=== PATIENT | female | born 1970 | race African-American/Black ===

== ENCOUNTER 2021-01-06 17:34 | Emergency (ER) | payer OTHER ==
[2021-01-06 17:42] VITALS: TEMP 98.3; BMI 38.7
[2021-01-06] MEDS ORDERED: FAMOTIDINE 20 MG TABLET PO ONE (18:36)
[2021-01-06] MEDS ORDERED: MAG HYDROX/AL HYDROX/SIMETH 30 ML UNIT-DOSE CUP PO ONE (18:36)
[2021-01-06] MEDS ORDERED: MAG HYDROX/AL HYDROX/SIMETH 30 ML UNIT-DOSE CUP ONE (18:42)
[2021-01-06] MEDS ORDERED: FAMOTIDINE 20 MG TABLET ONE (18:42)
[2021-01-06 19:04] LABS: EOS % 1.3 % (0-4.5); HEMATOCRIT 35.6 % (32.4-45.2); HEMOGLOBIN 11.9 GM/dL (10.7-15.3); LYMPH % 42.4 % (8-40); MCHC 33.4 g/dl (32.0-36.0); MEAN CELL VOLUME 86.8 fl (80-96); MEAN PLT VOLUME 7.8 fl (7.5-11.1); MONO % 8.7 % (3.8-10.2); NEUT % 46.6 % (42.8-82.8); PLATELET COUNT 258 10^3/uL (134-434); RDW 15.9 % (11.6-15.6); WHITE BLOOD COUNT 7.5 K/mm3 (4.0-10.0)
[2021-01-06 19:22] LABS: CHLORIDE 103 mmol/L (98-107); SODIUM 137 mmol/L (136-145)
[2021-01-06 19:24] LABS: CALCIUM 9.2 mg/dL (8.5-10.1)
[2021-01-06 19:25] LABS: ALBUMIN 3.4 g/dl (3.4-5.0); ANION GAP 7 MMOL/L (8-16); BLOOD UREA NITROGEN 12.2 mg/dL (7-18); CO2 27 mmol/L (21-32); GLUCOSE,RANDOM 90 mg/dL (74-106)
[2021-01-06 19:28] LABS: CREATININE 0.9 mg/dL (0.55-1.3); SGOT/AST 23 U/L (15-37); SGPT/ALT 32 U/L (13-61)
[2021-01-06 19:29] LABS: BILIRUBIN,TOTAL 0.3 mg/dL (0.2-1)
[2021-01-06 19:31] LABS: ALK PHOS 90 U/L (45-117)
[2021-01-06] MEDS ORDERED: ASPIRIN 81 MG CHEWABLE TABLETS PO ONE (22:13)
[2021-01-06 22:44] VITALS: BP 140/85; PULSE 70
== END 2021-01-06 22:44 ==
LOC: JER 17:34
DX: R07.9 Chest pain, unspecified (principal)
CPT/HCPCS: 36415; 71046-TC-FY; 80053; 82550; 82553; 84484; 85025; 93005; 93010; 99284-25

== ENCOUNTER 2021-03-25 16:18 | Emergency (ER) | payer OTHER ==
[2021-03-25 16:57] VITALS: TEMP 98; BMI 39.4
[2021-03-25] MEDS ORDERED: KETOROLAC TROMETHAMINE 30 MG/1 ML VIAL IM ONE (17:55)
[2021-03-25] MEDS ORDERED: KETOROLAC TROMETHAMINE 30 MG/1 ML VIAL ONE (18:20)
[2021-03-25] MEDS ORDERED: LIDOCAINE 5% TOPICAL PATCH TP ONE (19:36)
[2021-03-25 19:43] VITALS: BP 102/61; PULSE 71
[2021-03-25] MEDS ORDERED: LIDOCAINE 5% TOPICAL PATCH ONE (19:44)
== END 2021-03-25 20:02 | disposition home or self-care (01) ==
LOC: JER 16:18
PROC: 3E0233Z Introduction of Anti-inflammatory into Muscle, Percutaneous Approach (ICD-10-PCS; principal; 2021-03-25)
DX: M79.601 Pain in right arm (principal); W19.XXXA Unspecified fall, initial encounter; Y92.9 Unspecified place or not applicable
CPT/HCPCS: 73030-TC-RT-FY; 73060-TC-RT-FY; 73070-TC-RT-FY; 99284-25

== ENCOUNTER 2021-07-21 08:56 | Emergency (ER) | payer OTHER ==
[2021-07-21] MEDS ORDERED: DEXAMETHASONE LIQUID 0.5 MG/5 ML PO ONE (09:19)
[2021-07-21] MEDS ORDERED: guaiFENesin/CODEINE 10 ML UNIT-DOSE CUPS PO ONE (09:19)
[2021-07-21 09:25] VITALS: BP 146/77; PULSE 101; TEMP 98; BMI 39.6
[2021-07-21] MEDS ORDERED: guaiFENesin/CODEINE 5 ML UNIT-DOSE CUPS PO ONE (09:33)
[2021-07-21] MEDS ORDERED: DEXAMETHASONE SOD PHOSPHATE 10 MG/1 ML VIAL ONE (09:33)
[2021-07-21] MEDS: ALBUTEROL SO4 2.5/IPRATROPIUM 0.5 INH SOL 3 ML VIAL.NEB. NEB SCH ×2 (10:08→10:09)
[2021-07-22 06:08] LABS: SARS-CoV-2 NAA Not Detected (Not Detected)
== END 2021-07-21 11:55 | disposition home or self-care (01) ==
LOC: JER 08:56 → JERFT 08:56
PROC: 3E0F7GC Introduction of Other Therapeutic Substance into Respiratory Tract, Via Natural or Artificial Opening (ICD-10-PCS; principal; 2021-07-21)
DX: J45.21 Mild intermittent asthma with (acute) exacerbation (principal)
CPT/HCPCS: 71046-TC-FY; 99284-25; C9803-CS; U0003; U0005

== ENCOUNTER 2022-01-19 07:40 | Inpatient (IN) | payer OTHER ==
[2022-01-19 09:09] LABS: EOS % 1.4 % (0-4.5); HEMATOCRIT 39.4 % (32.4-45.2); HEMOGLOBIN 12.9 GM/dL (10.7-15.3); LYMPH % 29.6 % (8-40); MCH 27.8 pg (25.7-33.7); MCHC 32.8 g/dl (32.0-36.0); MEAN CELL VOLUME 84.7 fl (80-96); MEAN PLT VOLUME 7.2 fl (7.5-11.1); MONO % 9.9 % (3.8-10.2); NEUT % 58.1 % (42.8-82.8); PLATELET COUNT 186 10^3/uL (134-434); RBC 4.65 M/mm3 (3.60-5.2); RDW 15.8 % (11.6-15.6); WHITE BLOOD COUNT 6.8 K/mm3 (4.0-10.0)
[2022-01-19 09:25] LABS: CHLORIDE 105 mmol/L (98-107); SODIUM 137 mmol/L (136-145)
[2022-01-19 09:27] LABS: CALCIUM 9.5 mg/dL (8.5-10.1)
[2022-01-19 09:28] LABS: ALBUMIN 3.2 g/dl (3.4-5.0); ANION GAP 5 MMOL/L (8-16); BLOOD UREA NITROGEN 18.1 mg/dL (7-18); CO2 27 mmol/L (21-32); GLUCOSE,RANDOM 105 mg/dL (74-106); MAGNESIUM 2.3 mg/dL (1.8-2.4)
[2022-01-19 09:31] LABS: CREATININE 1.1 mg/dL (0.55-1.3); SGOT/AST 17 U/L (15-37); SGPT/ALT 18 U/L (13-61)
[2022-01-19 09:32] LABS: BILIRUBIN,TOTAL 0.3 mg/dL (0.2-1)
[2022-01-19 09:34] LABS: ALK PHOS 99 U/L (45-117)
[2022-01-19] MEDS ORDERED: ASPIRIN 81 MG CHEWABLE TABLETS PO ONE (10:18)
[2022-01-19] MEDS ORDERED: ASPIRIN 81 MG CHEWABLE TABLETS ONE (10:23)
[2022-01-19] MEDS ORDERED: ACETAMINOPHEN 325 MG TABLET (FP) PO PRN (10:33)
[2022-01-19 12:20] LABS: CHOLESTEROL 234 mg/dL (50-200); TRIGLYCERIDES 95 mg/dL (0-150)
[2022-01-19 12:21] LABS: LDL CHOLESTEROL (ONLY SJRH) 150 mg/dL (5-100)
[2022-01-19 12:23] LABS: HDL CHOLESTEROL 57 mg/dL (40-60)
[2022-01-19 13:18] LABS: URINE APPEARANCE CLEAR; URINE BILIRUBIN NEGATIVE (NEGATIVE); URINE COLOR YELLOW; URINE GLUCOSE (UA) NEGATIVE (NEGATIVE); URINE KETONE NEGATIVE (NEGATIVE); URINE LEUK ESTERASE NEGATIVE (NEGATIVE); URINE NITRITE NEGATIVE (NEGATIVE); URINE PROTEIN NEGATIVE (NEGATIVE); URINE UROBILINOGEN 0.2 mg/dL (0.2-1.0)
[2022-01-19] MEDS ORDERED: ATORVASTATIN CA 10 MG TABLET (FP) PO SCH (22:00)
[2022-01-20] MEDS ORDERED: NOREPINEPHRINE BITARTRATE 16,000 MCG in SODIUM CHLORIDE 484 ML IV SCH (03:30)
[2022-01-20 04:18] LABS: ARTERIAL BLD GAS O2 SATURATION 99.2 % (95-98); ARTERIAL BLOOD GAS BASE EXCESS -17.2 mmol/L (-2-2); ARTERIAL BLOOD GAS PO2 235.7 mmHg (80-100)
[2022-01-20] MEDS ORDERED: EPINEPHrine 1:10,000 (P-F SYR) 1 MG/10 ML DISP.SYRIN ONE ×2 (04:27→19:57)
[2022-01-20 04:42] LABS: ARTERIAL BLOOD GAS pH 7.119 (7.350-7.450)
[2022-01-20 05:12] LABS: INR 1.28 (0.83-1.09); PROTHROMBIN TIME (PATIENT) 14.8 SEC (9.7-13.0)
[2022-01-20 05:14] LABS: ACTIVATED PTT 61.7 SECONDS (25.2-36.5); CALCIUM 8.8 mg/dL (8.5-10.1); MAGNESIUM 2.4 mg/dL (1.8-2.4)
[2022-01-20 05:15] LABS: ALBUMIN 2.8 g/dl (3.4-5.0); BLOOD UREA NITROGEN 15.7 mg/dL (7-18)
[2022-01-20 05:17] LABS: CREATININE 1.7 mg/dL (0.55-1.3)
[2022-01-20 05:18] LABS: BILIRUBIN,DIRECT 0.2 mg/dL (0.0-0.2); PHOSPHOROUS 8.4 mg/dL (2.5-4.9)
[2022-01-20 05:19] LABS: TOT PROT 7.2 g/dl (6.4-8.2)
[2022-01-20 05:20] LABS: BILIRUBIN,TOTAL 0.4 mg/dL (0.2-1)
[2022-01-20] MEDS ORDERED: ALTEPLASE 100 MG/100 ML VIAL IVPB STA ×2 (05:21→05:32)
[2022-01-20] MEDS: NOREPINEPHRINE BITARTRATE/D5W 8 MG/250 ML BAG IVPB SCH ×2 (05:30→14:43)
[2022-01-20 05:35] LABS: HEMATOCRIT 42.7 % (32.4-45.2); HEMOGLOBIN 12.9 GM/dL (10.7-15.3); MCH 26.9 pg (25.7-33.7); MCHC 30.2 g/dl (32.0-36.0); MEAN CELL VOLUME 88.8 fl (80-96); MEAN PLT VOLUME 7.1 fl (7.5-11.1); PLATELET COUNT 92 10^3/uL (134-434); RDW 16.6 % (11.6-15.6); WHITE BLOOD COUNT 12.5 K/mm3 (4.0-10.0)
[2022-01-20] MEDS ORDERED: PHENYLEPHRINE HCL 10 MG/1 ML SINGLE DOSE VIAL ONE (05:35)
[2022-01-20] MEDS: PROPOFOL 1,000,000 MCG/100 ML VIAL IVPB SCH (05:35)
[2022-01-20] MEDS ORDERED: MIDAZOLAM HCL 2 MG/2 ML SINGLE DOSE VIAL IVPUSH STA (05:38)
[2022-01-20] MEDS ORDERED: HEPARIN NA (PORCINE) 5,000 UNITS/ML 1ML VIAL IVPUSH PRN (05:42)
[2022-01-20] MEDS: SODIUM CHLORIDE 1,000 ML IV SCH (05:45)
[2022-01-20] MEDS ORDERED: PHENYLEPHRINE NS PREMIX 50,000 MCG/500 ML BAG IVPB SCH (05:45)
[2022-01-20] MEDS ORDERED: VASOPRESSIN 20 UNITS/ML VIAL IV ONE (05:52)
[2022-01-20 05:58] LABS: LACTIC ACID 8.4 mmol/L (0.4-2.0)
[2022-01-20] MEDS: VASOPRESSIN 40 UNITS/100 ML BAG IV SCH ×2 (05:58→14:43)
[2022-01-20] MEDS: HEPARIN INFUSION - 25,000 UNITS/500 ML INFUS.BAG IVPB SCH (07:42)
[2022-01-20 08:50] LABS: ARTERIAL BLD GAS O2 SATURATION 99.8 % (95-98); ARTERIAL BLOOD GAS BASE EXCESS -5.1 mmol/L (-2-2); ARTERIAL BLOOD GAS PO2 427.2 mmHg (80-100); ARTERIAL BLOOD GAS pH 7.355 (7.350-7.450)
[2022-01-20 08:52] LABS: VENT MODE TV 400
[2022-01-20] MEDS: MIDAZOLAM IN 0.9 % SOD.CHLORID 100 MG/100 ML PLAST..BAG IVPB SCH (09:14)
[2022-01-20] MEDS: ASPIRIN 81 MG CHEWABLE TABLETS PO SCH (09:55)
[2022-01-20] MEDS ORDERED: POLYMYXIN B SULFATE/TMP 10 ML OPHTHALMIC SOLUTION OU SCH (10:00)
[2022-01-20] MEDS ORDERED: ENOXAPARIN NA (PORCINE) 40 MG/0.4 ML DISP.SYRIN SQ SCH (10:00)
[2022-01-20 11:04] LABS: HEMATOCRIT 38.2 % (32.4-45.2); MCH 27.2 pg (25.7-33.7); MCHC 31.4 g/dl (32.0-36.0); MEAN CELL VOLUME 86.8 fl (80-96); MEAN PLT VOLUME 7.4 fl (7.5-11.1); PLATELET COUNT 128 10^3/uL (134-434); RDW 16.4 % (11.6-15.6); WHITE BLOOD COUNT 20.4 K/mm3 (4.0-10.0)
[2022-01-20] MEDS: ARTIFICIAL TEARS (POLYVINYL ALCOHOL) OPTH DROPS OU SCH ×2 (12:08→22:00)
[2022-01-20] MEDS ORDERED: LACTATED RINGERS SOLUTION 1000 ML INFUS.BAG IV ONE ×2 (12:12→14:14)
[2022-01-20] MEDS: LACTATED RINGERS SOLUTION 1,000 ML/1,000 ML INFUS.BAG IV SCH ×2 (12:23→22:00)
[2022-01-20 19:14] LABS: HEMATOCRIT 30.5 % (32.4-45.2); HEMOGLOBIN 9.4 GM/dL (10.7-15.3); MCH 26.4 pg (25.7-33.7); MCHC 30.8 g/dl (32.0-36.0); MEAN CELL VOLUME 85.9 fl (80-96); MEAN PLT VOLUME 8.2 fl (7.5-11.1); PLATELET COUNT 112 10^3/uL (134-434); RBC 3.55 M/mm3 (3.60-5.2); RDW 15.9 % (11.6-15.6); WHITE BLOOD COUNT 21.7 K/mm3 (4.0-10.0)
[2022-01-20] MEDS ORDERED: PHENYLEPHRINE NS PREMIX 50,000 MCG/500 ML BAG CVP SCH ×2 (23:00)
[2022-01-21] MEDS: MIDAZOLAM IN 0.9 % SOD.CHLORID 100 MG/100 ML PLAST..BAG IVPB SCH (02:00)
[2022-01-21] MEDS: PROPOFOL 1,000,000 MCG/100 ML VIAL IVPB SCH (03:00)
[2022-01-21] MEDS: VASOPRESSIN 40 UNITS/100 ML BAG IV SCH (03:00)
[2022-01-21] MEDS: HEPARIN INFUSION - 25,000 UNITS/500 ML INFUS.BAG IVPB SCH ×2 (06:24→10:40)
[2022-01-21] MEDS: NOREPINEPHRINE BITARTRATE/D5W 8 MG/250 ML BAG IVPB SCH ×3 (07:00→16:47)
[2022-01-21 08:18] LABS: CALCIUM 7.5 mg/dL (8.5-10.1)
[2022-01-21 08:19] LABS: BLOOD UREA NITROGEN 15.6 mg/dL (7-18); MAGNESIUM 1.4 mg/dL (1.8-2.4)
[2022-01-21 08:22] LABS: CREATININE 0.8 mg/dL (0.55-1.3); PHOSPHOROUS 1.6 mg/dL (2.5-4.9)
[2022-01-21 08:24] LABS: BILIRUBIN,TOTAL 0.3 mg/dL (0.2-1)
[2022-01-21] MEDS ORDERED: MAGNESIUM 1GM/D5W - 1 GM/100 ML IVPB IVPB ONE (08:38)
[2022-01-21] MEDS: ARTIFICIAL TEARS (POLYVINYL ALCOHOL) OPTH DROPS OU SCH ×2 (09:06→21:27)
[2022-01-21] MEDS: ASPIRIN 81 MG CHEWABLE TABLETS PO SCH (09:06)
[2022-01-21] MEDS: LACTATED RINGERS SOLUTION 1,000 ML/1,000 ML INFUS.BAG IV SCH ×2 (09:09→23:03)
[2022-01-21 09:38] LABS: LACTIC ACID 2.8 mmol/L (0.4-2.0)
[2022-01-21 10:15] LABS: HEMATOCRIT 23.2 % (32.4-45.2); HEMOGLOBIN 7.5 GM/dL (10.7-15.3); MCH 27.4 pg (25.7-33.7); MCHC 32.3 g/dl (32.0-36.0); MEAN CELL VOLUME 84.8 fl (80-96); MEAN PLT VOLUME 9.4 fl (7.5-11.1); PLATELET COUNT 96 10^3/uL (134-434); RBC 2.73 M/mm3 (3.60-5.2); RDW 15.6 % (11.6-15.6); WHITE BLOOD COUNT 16.8 K/mm3 (4.0-10.0)
[2022-01-21] MEDS ORDERED: POTASSIUM PHOSPHATE 15 MM in DEXTROSE 5%-WATER - 250 ML IVPB ONE (14:00)
[2022-01-21] MEDS: DEXMEDETOMIDINE PREMIX 400 MCG/100 ML BAG IVPB SCH ×2 (14:13→23:02)
[2022-01-21] MEDS: SODIUM CHLORIDE 1,000 ML IV SCH (15:24)
[2022-01-21 17:28] LABS: HEMATOCRIT 21.2 % (32.4-45.2); MCHC 31.7 g/dl (32.0-36.0); MEAN CELL VOLUME 85.1 fl (80-96); MEAN PLT VOLUME 8.2 fl (7.5-11.1); PLATELET COUNT 114 10^3/uL (134-434); RBC 2.49 M/mm3 (3.60-5.2); WHITE BLOOD COUNT 19.8 K/mm3 (4.0-10.0)
[2022-01-21 17:35] LABS: HEMOGLOBIN 6.7 GM/dL (10.7-15.3)
[2022-01-21] MEDS ORDERED: NAPH,MB-DB/K PH,MBDB POWDER PACKET PO ONE (19:41)
[2022-01-21] MEDS ORDERED: FUROSEMIDE 40 MG/4 ML INJECTABLE VIAL IVPUSH ONE (22:07)
[2022-01-21 23:06] LABS: BASO % 0.6 % (0-2.0); HEMATOCRIT 25.4 % (32.4-45.2); HEMOGLOBIN 8.3 GM/dL (10.7-15.3); LYMPH % 14.3 % (8-40); MCHC 32.6 g/dl (32.0-36.0); MEAN CELL VOLUME 85.7 fl (80-96); MONO % 8.1 % (3.8-10.2); PLATELET COUNT 120 10^3/uL (134-434); RBC 2.97 M/mm3 (3.60-5.2); RDW 15.3 % (11.6-15.6); WHITE BLOOD COUNT 22.2 K/mm3 (4.0-10.0)
[2022-01-21 23:52] LABS: ANISOCYTOSIS 3+; MACROCYTOSIS 2+; TARGET CELLS 2+
[2022-01-22 06:28] LABS: HEMATOCRIT 20.8 % (32.4-45.2); MCH 29.3 pg (25.7-33.7); MCHC 33.1 g/dl (32.0-36.0); MEAN CELL VOLUME 88.5 fl (80-96); MEAN PLT VOLUME 8.5 fl (7.5-11.1); PLATELET COUNT 110 10^3/uL (134-434); RBC 2.36 M/mm3 (3.60-5.2); RDW 15.5 % (11.6-15.6); WHITE BLOOD COUNT 17.7 K/mm3 (4.0-10.0)
[2022-01-22 06:33] LABS: INR 1.3 (0.83-1.09)
[2022-01-22 06:35] LABS: ACTIVATED PTT 50.6 SECONDS (25.2-36.5)
[2022-01-22 06:47] LABS: ALBUMIN 1.8 g/dl (3.4-5.0); CALCIUM 7.6 mg/dL (8.5-10.1)
[2022-01-22 06:48] LABS: BLOOD UREA NITROGEN 11.3 mg/dL (7-18); MAGNESIUM 1.9 mg/dL (1.8-2.4)
[2022-01-22 06:50] LABS: CREATININE 0.8 mg/dL (0.55-1.3)
[2022-01-22 06:51] LABS: PHOSPHOROUS 2.5 mg/dL (2.5-4.9)
[2022-01-22] MEDS: HEPARIN INFUSION - 25,000 UNITS/500 ML INFUS.BAG IVPB SCH (06:51)
[2022-01-22 06:52] LABS: BILIRUBIN,TOTAL 1.3 mg/dL (0.2-1); TOT PROT 4.8 g/dl (6.4-8.2)
[2022-01-22 07:15] LABS: HEMOGLOBIN 6.9 GM/dL (10.7-15.3)
[2022-01-22] MEDS: NOREPINEPHRINE BITARTRATE/D5W 8 MG/250 ML BAG IVPB SCH (08:08)
[2022-01-22] MEDS: PANTOPRAZOLE SODIUM 40 MG VIAL IVPUSH SCH (10:51)
[2022-01-22] MEDS: ARTIFICIAL TEARS (POLYVINYL ALCOHOL) OPTH DROPS OU SCH ×2 (10:52→21:18)
[2022-01-22 16:11] LABS: HEMATOCRIT 26.4 % (32.4-45.2); HEMOGLOBIN 8.7 GM/dL (10.7-15.3); MCH 29.2 pg (25.7-33.7); MCHC 32.9 g/dl (32.0-36.0); MEAN CELL VOLUME 88.8 fl (80-96); MEAN PLT VOLUME 8.8 fl (7.5-11.1); PLATELET COUNT 126 10^3/uL (134-434); RBC 2.97 M/mm3 (3.60-5.2); WHITE BLOOD COUNT 22.5 K/mm3 (4.0-10.0)
[2022-01-22] MEDS: ACETAMINOPHEN 1000 MG/100 ML BAG IVPB PRN (16:45)
[2022-01-22] MEDS: DEXMEDETOMIDINE PREMIX 400 MCG/100 ML BAG IVPB SCH (17:30)
[2022-01-22] MEDS ORDERED: PIPERACILLIN/TAZOB 3.375 GM 3.375 GM in DEXTROSE 5%-WATER - 50 ML IVPB SCH (18:15)
[2022-01-22] MEDS: PIPERACILLIN/TAZOB 3.375 GM 3.375 GM in DEXTROSE 5%-WATER - 50 ML IVPB SCH (18:25)
[2022-01-23] MEDS: PIPERACILLIN/TAZOB 3.375 GM 3.375 GM in DEXTROSE 5%-WATER - 50 ML IVPB SCH ×3 (01:08→17:54)
[2022-01-23] MEDS: HEPARIN INFUSION - 25,000 UNITS/500 ML INFUS.BAG IVPB SCH (06:50)
[2022-01-23 07:18] LABS: HEMATOCRIT 22.5 % (32.4-45.2); MCH 30.6 pg (25.7-33.7); MCHC 35.5 g/dl (32.0-36.0); MEAN CELL VOLUME 86.4 fl (80-96); MEAN PLT VOLUME 8.1 fl (7.5-11.1); PLATELET COUNT 122 10^3/uL (134-434); RDW 15.1 % (11.6-15.6); WHITE BLOOD COUNT 20.3 K/mm3 (4.0-10.0)
[2022-01-23 07:47] LABS: CALCIUM 8.2 mg/dL (8.5-10.1)
[2022-01-23 07:48] LABS: BLOOD UREA NITROGEN 13.4 mg/dL (7-18)
[2022-01-23 07:51] LABS: CREATININE 0.8 mg/dL (0.55-1.3); PHOSPHOROUS 2.7 mg/dL (2.5-4.9)
[2022-01-23 07:52] LABS: TOT PROT 5.4 g/dl (6.4-8.2)
[2022-01-23] MEDS ORDERED: ALBUTEROL SULFATE 2 MG/5 ML SOLUTION PO ONE (07:59)
[2022-01-23] MEDS ORDERED: ACETYLCYSTEINE 20% 200MG/ML 4 ML VIAL *FOR ORAL / INH USE ONLY NEB ONE (07:59)
[2022-01-23] MEDS ORDERED: DEXAMETHASONE SOD PHOSPHATE 10 MG/1 ML VIAL IVPUSH ONE (08:15)
[2022-01-23] MEDS ORDERED: RACEPINEPHRINE IH SOL 2.25% 11.25 MG/0.5 ML VIAL NEB ONE ×4 (08:15→11:16)
[2022-01-23] MEDS ORDERED: ALBUTEROL SO4 0.083% IH SOL 2.5 MG/3 ML VIAL.NEB. NEB ONE (08:22)
[2022-01-23] MEDS: HEPARIN NA (PORCINE) 5,000 UNITS/ML 1ML VIAL IVPUSH PRN ×2 (09:18→18:02)
[2022-01-23] MEDS: PANTOPRAZOLE SODIUM 40 MG VIAL IVPUSH SCH (09:20)
[2022-01-23] MEDS: ARTIFICIAL TEARS (POLYVINYL ALCOHOL) OPTH DROPS OU SCH (09:21)
[2022-01-23] MEDS ORDERED: RACEPINEPHRINE IH SOL 2.25% 11.25 MG/0.5 ML VIAL IH ONE (10:39)
[2022-01-23] MEDS: ACETAMINOPHEN 1000 MG/100 ML BAG IVPB PRN (11:22)
[2022-01-23] MEDS: DEXAMETHASONE SOD PHOSPHATE 10 MG/1 ML VIAL IVPUSH SCH ×2 (11:22→17:54)
[2022-01-23 11:56] LABS: ARTERIAL BLD GAS O2 SATURATION 98.6 % (95-98); ARTERIAL BLOOD GAS BASE EXCESS 1.7 mmol/L (-2-2); ARTERIAL BLOOD GAS PO2 129.6 mmHg (80-100); ARTERIAL BLOOD GAS pH 7.413 (7.350-7.450)
[2022-01-23 16:07] VITALS: BMI 40.2
[2022-01-23] MEDS: NOREPINEPHRINE BITARTRATE/D5W 8 MG/250 ML BAG IVPB SCH (17:52)
[2022-01-23] MEDS: DEXMEDETOMIDINE PREMIX 400 MCG/100 ML BAG IVPB SCH (17:52)
[2022-01-24] MEDS: PIPERACILLIN/TAZOB 3.375 GM 3.375 GM in DEXTROSE 5%-WATER - 50 ML IVPB SCH ×3 (01:55→17:43)
[2022-01-24] MEDS: DEXAMETHASONE SOD PHOSPHATE 10 MG/1 ML VIAL IVPUSH SCH ×3 (01:55→17:43)
[2022-01-24 07:40] LABS: HEMATOCRIT 26.1 % (32.4-45.2); HEMOGLOBIN 8.6 GM/dL (10.7-15.3); MCH 29.1 pg (25.7-33.7); MCHC 33.1 g/dl (32.0-36.0); MEAN CELL VOLUME 87.8 fl (80-96); MEAN PLT VOLUME 8.3 fl (7.5-11.1); PLATELET COUNT 179 10^3/uL (134-434); RBC 2.97 M/mm3 (3.60-5.2); RDW 15.5 % (11.6-15.6); WHITE BLOOD COUNT 21.6 K/mm3 (4.0-10.0)
[2022-01-24 08:05] LABS: ALBUMIN 2.4 g/dl (3.4-5.0); BLOOD UREA NITROGEN 12.2 mg/dL (7-18)
[2022-01-24 08:08] LABS: CREATININE 0.7 mg/dL (0.55-1.3)
[2022-01-24 08:09] LABS: BILIRUBIN,TOTAL 0.8 mg/dL (0.2-1)
[2022-01-24 08:10] LABS: TOT PROT 6.5 g/dl (6.4-8.2)
[2022-01-24] MEDS: NOREPINEPHRINE BITARTRATE/D5W 8 MG/250 ML BAG IVPB SCH (08:26)
[2022-01-24] MEDS: PANTOPRAZOLE SODIUM 40 MG VIAL IVPUSH SCH (09:35)
[2022-01-24] MEDS: HEPARIN INFUSION - 25,000 UNITS/500 ML INFUS.BAG IVPB SCH (09:59)
[2022-01-24] MEDS: ARTIFICIAL TEARS (POLYVINYL ALCOHOL) OPTH DROPS OU SCH ×2 (10:08→23:50)
[2022-01-24] MEDS ORDERED: POTASSIUM PHOSPHATE 30 MM in DEXTROSE 5%-WATER - 250 ML IVPB ONE (12:00)
[2022-01-24] MEDS: DEXMEDETOMIDINE PREMIX 400 MCG/100 ML BAG IVPB SCH (17:02)
[2022-01-25] MEDS: PIPERACILLIN/TAZOB 3.375 GM 3.375 GM in DEXTROSE 5%-WATER - 50 ML IVPB SCH ×4 (02:00→18:54)
[2022-01-25] MEDS: DEXAMETHASONE SOD PHOSPHATE 10 MG/1 ML VIAL IVPUSH SCH ×3 (03:13→18:56)
[2022-01-25 07:35] LABS: HEMATOCRIT 28.4 % (32.4-45.2); HEMOGLOBIN 9.2 GM/dL (10.7-15.3); MCH 28.4 pg (25.7-33.7); MCHC 32.3 g/dl (32.0-36.0); MEAN CELL VOLUME 87.7 fl (80-96); MEAN PLT VOLUME 7.8 fl (7.5-11.1); PLATELET COUNT 234 10^3/uL (134-434); RBC 3.24 M/mm3 (3.60-5.2); RDW 15.4 % (11.6-15.6); WHITE BLOOD COUNT 20.2 K/mm3 (4.0-10.0)
[2022-01-25 07:59] LABS: ALBUMIN 2.5 g/dl (3.4-5.0); BLOOD UREA NITROGEN 15.2 mg/dL (7-18); CALCIUM 9.1 mg/dL (8.5-10.1)
[2022-01-25 08:02] LABS: CREATININE 0.8 mg/dL (0.55-1.3)
[2022-01-25 08:04] LABS: BILIRUBIN,TOTAL 0.9 mg/dL (0.2-1)
[2022-01-25] MEDS: PANTOPRAZOLE SODIUM 40 MG VIAL IVPUSH SCH (10:17)
[2022-01-25] MEDS: NOREPINEPHRINE BITARTRATE/D5W 8 MG/250 ML BAG IVPB SCH (10:17)
[2022-01-25] MEDS: HEPARIN INFUSION - 25,000 UNITS/500 ML INFUS.BAG IVPB SCH (10:18)
[2022-01-25] MEDS: ARTIFICIAL TEARS (POLYVINYL ALCOHOL) OPTH DROPS OU SCH ×2 (10:21→22:30)
[2022-01-25] MEDS ORDERED: LACTATED RINGERS SOLUTION 1,000 ML/1,000 ML INFUS.BAG IV SCH (18:15)
[2022-01-25] MEDS: DEXMEDETOMIDINE PREMIX 400 MCG/100 ML BAG IVPB SCH (18:56)
[2022-01-26] MEDS: DEXAMETHASONE SOD PHOSPHATE 10 MG/1 ML VIAL IVPUSH SCH (02:00)
[2022-01-26 07:24] LABS: MCHC 33.4 g/dl (32.0-36.0); MEAN PLT VOLUME 7.7 fl (7.5-11.1); PLATELET COUNT 246 10^3/uL (134-434); RDW 15.2 % (11.6-15.6)
[2022-01-26 07:46] LABS: CALCIUM 8.8 mg/dL (8.5-10.1)
[2022-01-26 07:47] LABS: ALBUMIN 2.3 g/dl (3.4-5.0); BLOOD UREA NITROGEN 22.4 mg/dL (7-18)
[2022-01-26 07:50] LABS: CREATININE 0.9 mg/dL (0.55-1.3)
[2022-01-26 07:51] LABS: BILIRUBIN,TOTAL 0.8 mg/dL (0.2-1); TOT PROT 6.3 g/dl (6.4-8.2)
[2022-01-26] MEDS: HEPARIN INFUSION - 25,000 UNITS/500 ML INFUS.BAG IVPB SCH (09:09)
[2022-01-26] MEDS: NOREPINEPHRINE BITARTRATE/D5W 8 MG/250 ML BAG IVPB SCH (09:10)
[2022-01-26] MEDS: PANTOPRAZOLE SODIUM 40 MG VIAL IVPUSH SCH (09:32)
[2022-01-26] MEDS: PIPERACILLIN/TAZOB 3.375 GM 3.375 GM in DEXTROSE 5%-WATER - 50 ML IVPB SCH ×2 (09:32→17:26)
[2022-01-26] MEDS: ARTIFICIAL TEARS (POLYVINYL ALCOHOL) OPTH DROPS OU SCH ×3 (09:33→22:02)
[2022-01-26] MEDS: AMINO ACIDS 4.25%/D5W 1,000 ML IV SCH (10:29)
[2022-01-26] MEDS: ENOXAPARIN NA (PORCINE) 120 MG/0.8 ML DISP.SYRIN SQ SCH ×2 (12:55→21:54)
[2022-01-26] MEDS ORDERED: ONDANSETRON 4 MG/2 ML VIAL IVPUSH ONE (14:43)
[2022-01-26] MEDS ORDERED: ONDANSETRON 4 MG/2 ML VIAL IVPUSH PRN (14:52)
[2022-01-26] MEDS: DEXMEDETOMIDINE PREMIX 400 MCG/100 ML BAG IVPB SCH (17:26)
[2022-01-26] MEDS: MECLIZINE HCL 12.5 MG TABLET PO SCH (21:58)
[2022-01-27] MEDS: PIPERACILLIN/TAZOB 3.375 GM 3.375 GM in DEXTROSE 5%-WATER - 50 ML IVPB SCH ×3 (02:32→17:22)
[2022-01-27 07:17] LABS: HEMATOCRIT 27.4 % (32.4-45.2); HEMOGLOBIN 8.6 GM/dL (10.7-15.3); MCH 28.2 pg (25.7-33.7); MCHC 31.4 g/dl (32.0-36.0); MEAN CELL VOLUME 89.7 fl (80-96); MEAN PLT VOLUME 8.4 fl (7.5-11.1); PLATELET COUNT 254 10^3/uL (134-434); RBC 3.06 M/mm3 (3.60-5.2); RDW 15.1 % (11.6-15.6); WHITE BLOOD COUNT 17.9 K/mm3 (4.0-10.0)
[2022-01-27] MEDS ORDERED: POTASSIUM CHLORIDE ORAL LIQUID 20 MEQ/15 ML PO ONE (07:42)
[2022-01-27 07:45] LABS: ALBUMIN 2.3 g/dl (3.4-5.0); BLOOD UREA NITROGEN 26.4 mg/dL (7-18); CALCIUM 8.6 mg/dL (8.5-10.1)
[2022-01-27 07:48] LABS: CHOLESTEROL 241 mg/dL (50-200); TRIGLYCERIDES 132 mg/dL (0-150)
[2022-01-27 07:49] LABS: BILIRUBIN,TOTAL 0.7 mg/dL (0.2-1); LDL CHOLESTEROL (ONLY SJRH) 172 mg/dL (5-100)
[2022-01-27 07:50] LABS: TOT PROT 5.8 g/dl (6.4-8.2)
[2022-01-27 07:52] LABS: HDL CHOLESTEROL 40 mg/dL (40-60)
[2022-01-27] MEDS: NOREPINEPHRINE BITARTRATE/D5W 8 MG/250 ML BAG IVPB SCH (08:38)
[2022-01-27] MEDS: MECLIZINE HCL 12.5 MG TABLET PO SCH ×2 (09:24→21:20)
[2022-01-27] MEDS: ENOXAPARIN NA (PORCINE) 120 MG/0.8 ML DISP.SYRIN SQ SCH ×2 (09:25→21:21)
[2022-01-27] MEDS: PANTOPRAZOLE SODIUM 40 MG VIAL IVPUSH SCH (09:25)
[2022-01-27] MEDS: ARTIFICIAL TEARS (POLYVINYL ALCOHOL) OPTH DROPS OU SCH ×2 (09:25→21:21)
[2022-01-27] MEDS: AMINO ACIDS 4.25%/D5W 1,000 ML IV SCH (09:43)
[2022-01-27] MEDS ORDERED: traMADol HCL 50 MG TABLET PO ONE (11:43)
[2022-01-27] MEDS: DEXMEDETOMIDINE PREMIX 400 MCG/100 ML BAG IVPB SCH (17:21)
[2022-01-27 17:56] LABS: CALCIUM 8.5 mg/dL (8.5-10.1)
[2022-01-27 17:57] LABS: BLOOD UREA NITROGEN 25.9 mg/dL (7-18)
[2022-01-27 18:00] LABS: CREATININE 0.9 mg/dL (0.55-1.3)
[2022-01-27] MEDS ORDERED: POTASSIUM CHLORIDE 20 MEQ PREMIX IVPB 100 ML IVPB ONE (18:05)
[2022-01-28 06:43] LABS: BASO % 0.2 % (0-2.0); EOS % 0.5 % (0-4.5); HEMATOCRIT 29.2 % (32.4-45.2); HEMOGLOBIN 9.1 GM/dL (10.7-15.3); LYMPH % 31.3 % (8-40); MCH 27.5 pg (25.7-33.7); MCHC 31.1 g/dl (32.0-36.0); MEAN CELL VOLUME 88.3 fl (80-96); MEAN PLT VOLUME 7.7 fl (7.5-11.1); PLATELET COUNT 273 10^3/uL (134-434); RBC 3.31 M/mm3 (3.60-5.2); RDW 15.2 % (11.6-15.6); WHITE BLOOD COUNT 15.6 K/mm3 (4.0-10.0)
[2022-01-28 06:53] LABS: ALBUMIN 2.2 g/dl (3.4-5.0); CALCIUM 8.3 mg/dL (8.5-10.1)
[2022-01-28 06:56] LABS: CREATININE 0.9 mg/dL (0.55-1.3)
[2022-01-28 06:58] LABS: BILIRUBIN,TOTAL 0.8 mg/dL (0.2-1); TOT PROT 5.5 g/dl (6.4-8.2)
[2022-01-28] MEDS: NOREPINEPHRINE BITARTRATE/D5W 8 MG/250 ML BAG IVPB SCH (07:32)
[2022-01-28] MEDS ORDERED: POTASSIUM CHLORIDE TABS 20 MEQ TABLET.ER (FP) PO ONE (07:44)
[2022-01-28] MEDS: MECLIZINE HCL 12.5 MG TABLET PO SCH ×2 (09:50→21:30)
[2022-01-28] MEDS: AMOX TR/POT CLAV 875MG/125MG TABLETS (FP) PO SCH ×2 (09:50→18:57)
[2022-01-28] MEDS: ARTIFICIAL TEARS (POLYVINYL ALCOHOL) OPTH DROPS OU SCH ×2 (09:50→21:30)
[2022-01-28] MEDS: PANTOPRAZOLE SODIUM 40 MG VIAL IVPUSH SCH (09:56)
[2022-01-28] MEDS: ENOXAPARIN NA (PORCINE) 120 MG/0.8 ML DISP.SYRIN SQ SCH (10:54)
[2022-01-28] MEDS: DEXMEDETOMIDINE PREMIX 400 MCG/100 ML BAG IVPB SCH (19:05)
[2022-01-28] MEDS: APIXABAN 5 MG TABLET PO SCH (21:30)
[2022-01-29] MEDS ORDERED: ACETAMINOPHEN 500 MG TABLET (FP) PO PRN ×2 (06:10→23:38)
[2022-01-29] MEDS: NOREPINEPHRINE BITARTRATE/D5W 8 MG/250 ML BAG IVPB SCH (06:34)
[2022-01-29 07:11] LABS: BASO % 0.6 % (0-2.0); EOS % 1.3 % (0-4.5); HEMATOCRIT 28.2 % (32.4-45.2); LYMPH % 26.2 % (8-40); MCH 28.2 pg (25.7-33.7); MEAN CELL VOLUME 88.3 fl (80-96); MEAN PLT VOLUME 7.8 fl (7.5-11.1); MONO % 6.1 % (3.8-10.2); NEUT % 65.8 % (42.8-82.8); PLATELET COUNT 247 10^3/uL (134-434); RDW 15.5 % (11.6-15.6); WHITE BLOOD COUNT 12.6 K/mm3 (4.0-10.0)
[2022-01-29 07:48] LABS: ALBUMIN 2.1 g/dl (3.4-5.0); CALCIUM 8.2 mg/dL (8.5-10.1)
[2022-01-29 07:49] LABS: BLOOD UREA NITROGEN 18.9 mg/dL (7-18); MAGNESIUM 2.6 mg/dL (1.8-2.4)
[2022-01-29 07:51] LABS: CREATININE 0.8 mg/dL (0.55-1.3); PHOSPHOROUS 2.6 mg/dL (2.5-4.9)
[2022-01-29 07:53] LABS: BILIRUBIN,TOTAL 0.7 mg/dL (0.2-1); TOT PROT 5.5 g/dl (6.4-8.2)
[2022-01-29] MEDS: MECLIZINE HCL 12.5 MG TABLET PO SCH ×2 (09:48→21:20)
[2022-01-29] MEDS: AMOX TR/POT CLAV 875MG/125MG TABLETS (FP) PO SCH (09:49)
[2022-01-29] MEDS: APIXABAN 5 MG TABLET PO SCH ×2 (09:49→21:20)
[2022-01-29] MEDS: PANTOPRAZOLE SODIUM 40 MG VIAL IVPUSH SCH (09:49)
[2022-01-29] MEDS: ARTIFICIAL TEARS (POLYVINYL ALCOHOL) OPTH DROPS OU SCH ×2 (09:50→21:20)
[2022-01-29] MEDS ORDERED: ONDANSETRON 4 MG/2 ML VIAL IVPUSH PRN (23:38)
[2022-01-30] MEDS: APIXABAN 5 MG TABLET PO SCH ×2 (11:47→21:15)
[2022-01-30] MEDS: MECLIZINE HCL 12.5 MG TABLET PO SCH ×2 (11:47→21:15)
[2022-01-30] MEDS: ARTIFICIAL TEARS (POLYVINYL ALCOHOL) OPTH DROPS OU SCH ×2 (11:48→21:53)
[2022-01-30] MEDS: PANTOPRAZOLE SODIUM 40 MG VIAL IVPUSH SCH (11:48)
[2022-01-30] MEDS: KCL 10 MEQ IVPB 10 MEQ/100 ML INFUS.BAG IVPB SCH ×3 (20:32→23:17)
[2022-01-31 08:21] LABS: HEMATOCRIT 31.7 % (32.4-45.2); HEMOGLOBIN 10.2 GM/dL (10.7-15.3); MCH 28.3 pg (25.7-33.7); MCHC 32.3 g/dl (32.0-36.0); MEAN CELL VOLUME 87.6 fl (80-96); MEAN PLT VOLUME 7.1 fl (7.5-11.1); PLATELET COUNT 357 10^3/uL (134-434); RBC 3.62 M/mm3 (3.60-5.2); RDW 15.9 % (11.6-15.6); WHITE BLOOD COUNT 14.7 K/mm3 (4.0-10.0)
[2022-01-31 08:39] LABS: ALBUMIN 2.4 g/dl (3.4-5.0); BLOOD UREA NITROGEN 9.7 mg/dL (7-18); CALCIUM 9.2 mg/dL (8.5-10.1); MAGNESIUM 2.3 mg/dL (1.8-2.4)
[2022-01-31 08:42] LABS: CREATININE 0.6 mg/dL (0.55-1.3)
[2022-01-31 08:44] LABS: BILIRUBIN,TOTAL 0.7 mg/dL (0.2-1); TOT PROT 6.5 g/dl (6.4-8.2)
[2022-01-31] MEDS: MECLIZINE HCL 12.5 MG TABLET PO SCH ×2 (10:55→21:45)
[2022-01-31] MEDS: PANTOPRAZOLE SODIUM 40 MG VIAL IVPUSH SCH (10:55)
[2022-01-31] MEDS: APIXABAN 5 MG TABLET PO SCH ×2 (10:55→21:45)
[2022-01-31] MEDS: ARTIFICIAL TEARS (POLYVINYL ALCOHOL) OPTH DROPS OU SCH (15:16)
[2022-02-01] MEDS: ARTIFICIAL TEARS (POLYVINYL ALCOHOL) OPTH DROPS OU SCH ×3 (02:15→23:41)
[2022-02-01 09:15] LABS: BASO % 0.9 % (0-2.0); EOS % 1.8 % (0-4.5); HEMOGLOBIN 11.6 GM/dL (10.7-15.3); LYMPH % 16.2 % (8-40); MCHC 31.2 g/dl (32.0-36.0); MEAN CELL VOLUME 89.5 fl (80-96); MEAN PLT VOLUME 7.4 fl (7.5-11.1); MONO % 5.3 % (3.8-10.2); NEUT % 75.8 % (42.8-82.8); PLATELET COUNT 400 10^3/uL (134-434); RBC 4.14 M/mm3 (3.60-5.2); RDW 16.3 % (11.6-15.6); WHITE BLOOD COUNT 15.1 K/mm3 (4.0-10.0)
[2022-02-01] MEDS: APIXABAN 5 MG TABLET PO SCH ×2 (09:29→21:29)
[2022-02-01] MEDS: MECLIZINE HCL 12.5 MG TABLET PO SCH ×2 (09:29→23:40)
[2022-02-01] MEDS: PANTOPRAZOLE SODIUM 40 MG VIAL IVPUSH SCH (09:30)
[2022-02-01 09:44] LABS: BLOOD UREA NITROGEN 11.8 mg/dL (7-18)
[2022-02-01 09:46] LABS: CALCIUM 9.6 mg/dL (8.5-10.1)
[2022-02-01 09:51] LABS: CREATININE 0.7 mg/dL (0.55-1.3)
[2022-02-01] MEDS: ROSUVASTATIN CA 10 MG TABLET PO SCH (21:29)
[2022-02-02] MEDS: APIXABAN 5 MG TABLET PO SCH ×2 (09:33→23:12)
[2022-02-02] MEDS: PANTOPRAZOLE SODIUM 40 MG VIAL IVPUSH SCH (09:33)
[2022-02-02] MEDS: MECLIZINE HCL 12.5 MG TABLET PO SCH ×2 (09:33→23:12)
[2022-02-02] MEDS: ARTIFICIAL TEARS (POLYVINYL ALCOHOL) OPTH DROPS OU SCH ×2 (09:34→23:12)
[2022-02-02 11:29] LABS: BASO % 0.4 % (0-2.0); EOS % 1.7 % (0-4.5); HEMATOCRIT 33.3 % (32.4-45.2); HEMOGLOBIN 10.6 GM/dL (10.7-15.3); LYMPH % 15.6 % (8-40); MCH 28.2 pg (25.7-33.7); MCHC 31.8 g/dl (32.0-36.0); MEAN CELL VOLUME 88.8 fl (80-96); MEAN PLT VOLUME 7.2 fl (7.5-11.1); MONO % 6.6 % (3.8-10.2); NEUT % 75.7 % (42.8-82.8); PLATELET COUNT 419 10^3/uL (134-434); RBC 3.76 M/mm3 (3.60-5.2); RDW 16.8 % (11.6-15.6); WHITE BLOOD COUNT 13.6 K/mm3 (4.0-10.0)
[2022-02-02 11:46] LABS: CALCIUM 9.3 mg/dL (8.5-10.1)
[2022-02-02 11:48] LABS: BLOOD UREA NITROGEN 11.2 mg/dL (7-18)
[2022-02-02 11:51] LABS: CREATININE 0.9 mg/dL (0.55-1.3)
[2022-02-02] MEDS ORDERED: DOCUSATE SODIUM 100 MG CAPSULE (FP) PO ONE (18:16)
[2022-02-02 18:17] VITALS: RESP 18
[2022-02-02] MEDS: POLYETHYLENE GLYCOL (HEALTHYLAX) 3350 17 GM PACKET PO SCH (20:18)
[2022-02-02] MEDS: ROSUVASTATIN CA 10 MG TABLET PO SCH (23:12)
[2022-02-03] MEDS: ARTIFICIAL TEARS (POLYVINYL ALCOHOL) OPTH DROPS OU SCH ×2 (09:34→22:01)
[2022-02-03] MEDS: APIXABAN 5 MG TABLET PO SCH ×2 (09:34→22:01)
[2022-02-03] MEDS: PANTOPRAZOLE SODIUM 40 MG VIAL IVPUSH SCH (09:35)
[2022-02-03] MEDS: POLYETHYLENE GLYCOL (HEALTHYLAX) 3350 17 GM PACKET PO SCH (09:35)
[2022-02-03] MEDS: MECLIZINE HCL 12.5 MG TABLET PO SCH ×2 (09:35→22:01)
[2022-02-03 10:46] LABS: HEMATOCRIT 34.2 % (32.4-45.2); MCH 28.5 pg (25.7-33.7); MEAN PLT VOLUME 7.6 fl (7.5-11.1); PLATELET COUNT 405 10^3/uL (134-434); RBC 3.84 M/mm3 (3.60-5.2); RDW 16.9 % (11.6-15.6); WHITE BLOOD COUNT 13.2 K/mm3 (4.0-10.0)
[2022-02-03 11:17] LABS: ALBUMIN 2.8 g/dl (3.4-5.0); CALCIUM 9.7 mg/dL (8.5-10.1); MAGNESIUM 2.3 mg/dL (1.8-2.4)
[2022-02-03 11:19] LABS: BILIRUBIN,TOTAL 0.8 mg/dL (0.2-1); CREATININE 0.8 mg/dL (0.55-1.3); TOT PROT 7.1 g/dl (6.4-8.2)
[2022-02-03] MEDS: ROSUVASTATIN CA 10 MG TABLET PO SCH (22:01)
[2022-02-04] MEDS: MECLIZINE HCL 12.5 MG TABLET PO SCH (09:49)
[2022-02-04] MEDS: APIXABAN 5 MG TABLET PO SCH (09:49)
[2022-02-04] MEDS: PANTOPRAZOLE SODIUM 40 MG VIAL IVPUSH SCH (09:49)
[2022-02-04] MEDS: POLYETHYLENE GLYCOL (HEALTHYLAX) 3350 17 GM PACKET PO SCH (09:49)
[2022-02-04] MEDS: ARTIFICIAL TEARS (POLYVINYL ALCOHOL) OPTH DROPS OU SCH (09:50)
[2022-02-04 11:36] LABS: HEMATOCRIT 33.7 % (32.4-45.2); HEMOGLOBIN 10.7 GM/dL (10.7-15.3); MCH 28.1 pg (25.7-33.7); MCHC 31.7 g/dl (32.0-36.0); MEAN CELL VOLUME 88.7 fl (80-96); MEAN PLT VOLUME 7.2 fl (7.5-11.1); PLATELET COUNT 450 10^3/uL (134-434); RDW 17.9 % (11.6-15.6); WHITE BLOOD COUNT 11.5 K/mm3 (4.0-10.0)
[2022-02-04 12:03] LABS: ALBUMIN 2.7 g/dl (3.4-5.0); CALCIUM 9.8 mg/dL (8.5-10.1)
[2022-02-04 12:04] LABS: BLOOD UREA NITROGEN 9.4 mg/dL (7-18)
[2022-02-04 12:07] LABS: CREATININE 0.8 mg/dL (0.55-1.3)
[2022-02-04 12:08] LABS: BILIRUBIN,TOTAL 0.7 mg/dL (0.2-1); TOT PROT 7.1 g/dl (6.4-8.2)
[2022-02-04 18:40] VITALS: BP 119/70; PULSE 86; TEMP 98.2
== END 2022-02-04 18:20 | DRG 61 ==
LOC: JER 07:40 → JERBED 10:11 → OBSVTOIN 19:12 → JICU 01-20 04:00 → J5S 01-29 23:41
PROVIDERS: ADMIT Internal Medicine; ATTEND Internal Medicine
PROC: 3E03317 Introduction of Other Thrombolytic into Peripheral Vein, Percutaneous Approach (ICD-10-PCS; principal; 2022-01-20)
PROC: 5A12012 Performance of Cardiac Output, Single, Manual (ICD-10-PCS; 2022-01-20)
PROC: 5A1945Z Respiratory Ventilation, 24-96 Consecutive Hours (ICD-10-PCS; 2022-01-20)
PROC: 0BH17EZ Insertion of Endotracheal Airway into Trachea, Via Natural or Artificial Opening (ICD-10-PCS; 2022-01-20)
PROC: 06HY33Z Insertion of Infusion Device into Lower Vein, Percutaneous Approach (ICD-10-PCS; 2022-01-20)
PROC: 30233N1 Transfusion of Nonautologous Red Blood Cells into Peripheral Vein, Percutaneous Approach (ICD-10-PCS; 2022-01-21)
PROC: 05HC33Z Insertion of Infusion Device into Left Basilic Vein, Percutaneous Approach (ICD-10-PCS; 2022-01-24)
DX: I63.9 Cerebral infarction, unspecified (principal); I26.99 Other pulmonary embolism without acute cor pulmonale; I46.9 Cardiac arrest, cause unspecified; J95.821 Acute postprocedural respiratory failure; J69.0 Pneumonitis due to inhalation of food and vomit; K72.00 Acute and subacute hepatic failure without coma; N17.9 Acute kidney failure, unspecified; R57.9 Shock, unspecified; E87.20 Acidosis, unspecified; I31.39 Other pericardial effusion (noninflammatory); J90 Pleural effusion, not elsewhere classified; J98.11 Atelectasis; I24.8 Other forms of acute ischemic heart disease; E66.01 Morbid (severe) obesity due to excess calories; Z68.38 Body mass index [BMI] 38.0-38.9, adult; D64.9 Anemia, unspecified; D69.6 Thrombocytopenia, unspecified; I27.20 Pulmonary hypertension, unspecified; R42 Dizziness and giddiness; E78.00 Pure hypercholesterolemia, unspecified; J45.909 Unspecified asthma, uncomplicated; R31.9 Hematuria, unspecified; D72.829 Elevated white blood cell count, unspecified; R00.1 Bradycardia, unspecified
CPT/HCPCS: 36415; 36430; 36600; 70450-TC; 70551-TC; 71045-TC-FY; 71275-TC; 73030-TC-RT-FY; 74176-TC; 74230-TC-FY; 80048; 80053; 80061; 80076; 81003; 82272; 82550; 82803; 82962; 83010; 83036; 83605; 83615; 83735; 83880; 84100; 84439; 84443; 84484; 85025; 85027; 85379; 85610; 85730; 86850; 86900; 86901; 86922; 87040; 87070; 87186; 87205; 92611-GN; 93005; 93010; 93306-TC; 93880-TC; 93970-TC; 94002; 94640; 95816; 97116-GP; 97163-GP; 99285-25; C9803-CS; G0378; J1100; J1644; J2997; J3490; P9058; Q9967; U0003; U0005

== ENCOUNTER 2022-11-19 16:12 | Observation (INO) | payer OTHER ==
[2022-11-19] MEDS ORDERED: ACETAMINOPHEN 1000 MG/100 ML BAG IVPB ONE (16:41)
[2022-11-19] MEDS ORDERED: ACETAMINOPHEN INJECTION 100 ML IVPB ONE (17:17)
[2022-11-19] MEDS ORDERED: morphine CARPU-JECT 2 MG/1 ML DISP.SYRIN IVPUSH ONE (18:08)
[2022-11-19] MEDS ORDERED: morphine CARPU-JECT 4 MG/1 ML DISP.SYRIN IVPUSH ONE (18:13)
[2022-11-19] MEDS ORDERED: morphine SULFATE 4 MG/ML VIAL ONE (18:54)
[2022-11-19 20:39] LABS: POTASSIUM 4.8 mmol/L (3.5-5.1)
[2022-11-19 20:41] LABS: BASO % 0.8 % (0-2.0); CALCIUM 9.9 mg/dL (8.5-10.1); EOS % 1.2 % (0-4.5); HEMATOCRIT 39.2 % (32.4-45.2); HEMOGLOBIN 12.6 GM/dL (10.7-15.3); LYMPH % 33.8 % (8-40); MCH 28.9 pg (25.7-33.7); MCHC 32.1 g/dl (32.0-36.0); MEAN CELL VOLUME 90.2 fl (80-96); MEAN PLT VOLUME 9.5 fl (7.5-11.1); MONO % 8.5 % (3.8-10.2); NEUT % 55.7 % (42.8-82.8); PLATELET COUNT 260 10^3/uL (134-434); RBC 4.35 M/mm3 (3.60-5.2); RDW 14.7 % (11.6-15.6); WHITE BLOOD COUNT 8.8 K/mm3 (4.0-10.0)
[2022-11-19 20:42] LABS: ALBUMIN 3.6 g/dl (3.4-5.0); BLOOD UREA NITROGEN 10.9 mg/dL (7-18)
[2022-11-19 20:47] LABS: BILIRUBIN,TOTAL 0.3 mg/dL (0.2-1); TOT PROT 7.9 g/dl (6.4-8.2)
[2022-11-19 20:59] LABS: INR 1.22 (0.83-1.09); PROTHROMBIN TIME (PATIENT) 14.1 SEC (9.7-13.0)
[2022-11-19 21:02] LABS: ACTIVATED PTT 34.7 SECONDS (25.2-36.5)
[2022-11-20 01:34] VITALS: BMI 35.3
[2022-11-20] MEDS ORDERED: ALBUTEROL SO4 HFA INHALER IH PRN (02:23)
[2022-11-20] MEDS: APIXABAN 5 MG TABLET PO SCH ×2 (02:51→10:30)
[2022-11-20] MEDS ORDERED: HYDROmorphone HCl 2 MG/ML VIAL IVPUSH ONE (07:30)
[2022-11-20] MEDS ORDERED: HYDROmorphone HCl 2 MG/ML VIAL IVPB ONE (07:30)
[2022-11-20] MEDS ORDERED: ENOXAPARIN NA (PORCINE) 40 MG/0.4 ML DISP.SYRIN SQ SCH (10:00)
[2022-11-20 12:52] LABS: HEMATOCRIT 35.4 % (32.4-45.2); HEMOGLOBIN 11.2 GM/dL (10.7-15.3); MCH 28.6 pg (25.7-33.7); MCHC 31.6 g/dl (32.0-36.0); MEAN CELL VOLUME 90.6 fl (80-96); PLATELET COUNT 249 10^3/uL (134-434); RBC 3.91 M/mm3 (3.60-5.2); RDW 14.9 % (11.6-15.6); WHITE BLOOD COUNT 8.2 K/mm3 (4.0-10.0)
[2022-11-20 13:16] LABS: CALCIUM 9.6 mg/dL (8.5-10.1)
[2022-11-20 13:17] LABS: ALBUMIN 3.1 g/dl (3.4-5.0); BLOOD UREA NITROGEN 11.2 mg/dL (7-18)
[2022-11-20 13:20] LABS: CREATININE 0.9 mg/dL (0.55-1.3)
[2022-11-20 13:22] LABS: BILIRUBIN,TOTAL 0.5 mg/dL (0.2-1); TOT PROT 6.9 g/dl (6.4-8.2)
[2022-11-20] MEDS: ATORVASTATIN CA 20 MG TABLET (FP) PO SCH (21:27)
[2022-11-21 10:14] LABS: POTASSIUM 4.5 mmol/L (3.5-5.1)
[2022-11-21 10:25] LABS: HEMATOCRIT 35.2 % (32.4-45.2); HEMOGLOBIN 11.4 GM/dL (10.7-15.3); MCH 29.1 pg (25.7-33.7); MCHC 32.4 g/dl (32.0-36.0); MEAN CELL VOLUME 89.7 fl (80-96); MEAN PLT VOLUME 8.9 fl (7.5-11.1); PLATELET COUNT 239 10^3/uL (134-434); RBC 3.92 M/mm3 (3.60-5.2); RDW 14.7 % (11.6-15.6); WHITE BLOOD COUNT 7.8 K/mm3 (4.0-10.0)
[2022-11-21 10:36] LABS: CALCIUM 9.5 mg/dL (8.5-10.1)
[2022-11-21 10:37] LABS: BLOOD UREA NITROGEN 15.7 mg/dL (7-18)
[2022-11-21 10:40] LABS: CREATININE 0.9 mg/dL (0.55-1.3)
[2022-11-21] MEDS: APIXABAN 5 MG TABLET PO SCH (21:06)
[2022-11-21] MEDS: ATORVASTATIN CA 20 MG TABLET (FP) PO SCH (21:06)
[2022-11-22] MEDS ORDERED: ACETAMINOPHEN 325 MG TABLET (FP) PO PRN (07:39)
[2022-11-22] MEDS ORDERED: KETOROLAC TROMETHAMINE 15 MG/ML VIAL IVPUSH PRN (07:39)
[2022-11-22] MEDS: APIXABAN 5 MG TABLET PO SCH (09:37)
[2022-11-22 11:44] VITALS: RESP 18
[2022-11-22 11:46] VITALS: BP 113/62; PULSE 75; TEMP 97.9
== END 2022-11-22 14:00 | disposition home or self-care (01) ==
LOC: JER 16:12 → JERBED 22:50 → J6S 11-20 01:59
PROVIDERS: ADMIT Internal Medicine; ATTEND Internal Medicine
PROC: 3E033NZ Introduction of Analgesics, Hypnotics, Sedatives into Peripheral Vein, Percutaneous Approach (ICD-10-PCS; principal; 2022-11-19)
PROC: 3E033NZ Introduction of Analgesics, Hypnotics, Sedatives into Peripheral Vein, Percutaneous Approach (ICD-10-PCS; 2022-11-19)
PROC: 3E0333Z Introduction of Anti-inflammatory into Peripheral Vein, Percutaneous Approach (ICD-10-PCS; 2022-11-19)
DX: S70.11XA Contusion of right thigh, initial encounter (principal); W18.39XA Other fall on same level, initial encounter; Y93.01 Activity, walking, marching and hiking; Y92.410 Unspecified street and highway as the place of occurrence of the external cause; Z79.01 Long term (current) use of anticoagulants; Z86.711 Personal history of pulmonary embolism; J45.909 Unspecified asthma, uncomplicated; R73.03 Prediabetes; E66.01 Morbid (severe) obesity due to excess calories; Z68.35 Body mass index [BMI] 35.0-35.9, adult
CPT/HCPCS: 36415; 72170-TC-FY; 72192-TC; 73502-TC-RT-FY; 73552-TC-RT-FY; 73562-TC-RT-FY; 73700-TC-RT; 80048; 80053; 85025; 85027; 85379; 85610; 85730; 93970-TC; 96374; 96375; 96376; 97116-GP; 97162-GP; 99285-25; G0378

== ENCOUNTER 2022-11-29 18:34 | Emergency (ER) | payer OTHER ==
[2022-11-29 18:49] VITALS: BP 114/69; PULSE 90; RESP 16; TEMP 98.1; BMI 36.0
== END 2022-11-29 20:23 | disposition home or self-care (01) ==
LOC: JER 18:34
DX: S70.11XA Contusion of right thigh, initial encounter (principal); W19.XXXA Unspecified fall, initial encounter
CPT/HCPCS: 99282-25

== ENCOUNTER 2022-12-10 16:57 | Emergency (ER) | payer OTHER ==
[2022-12-10 17:14] VITALS: BMI 35.7
[2022-12-10] MEDS ORDERED: ACETAMINOPHEN 1000 MG/100 ML BAG IVPB ONE (17:51)
[2022-12-10] MEDS ORDERED: morphine CARPU-JECT 4 MG/1 ML DISP.SYRIN IVPUSH ONE (19:21)
[2022-12-10] MEDS ORDERED: ACETAMINOPHEN INJECTION 100 ML IVPB ONE (20:24)
[2022-12-10] MEDS ORDERED: morphine SULFATE 4 MG/ML VIAL ONE (20:24)
[2022-12-10] MEDS ORDERED: ONDANSETRON 4 MG/2 ML VIAL IVPB ONE (20:28)
[2022-12-10] MEDS ORDERED: ONDANSETRON 4 MG/2 ML VIAL ONE (20:34)
[2022-12-10 20:51] LABS: BASO % 0.5 % (0-2.0); EOS % 0.3 % (0-4.5); HEMATOCRIT 36.8 % (32.4-45.2); HEMOGLOBIN 12.2 GM/dL (10.7-15.3); LYMPH % 25.2 % (8-40); MCH 28.8 pg (25.7-33.7); MEAN CELL VOLUME 87.4 fl (80-96); MEAN PLT VOLUME 8.2 fl (7.5-11.1); MONO % 7.3 % (3.8-10.2); NEUT % 66.7 % (42.8-82.8); PLATELET COUNT 363 10^3/uL (134-434); RBC 4.22 M/mm3 (3.60-5.2); RDW 15.6 % (11.6-15.6); WHITE BLOOD COUNT 9.8 K/mm3 (4.0-10.0)
[2022-12-10 21:24] LABS: POTASSIUM 4.5 mmol/L (3.5-5.1)
[2022-12-10 21:25] LABS: ALBUMIN 3.5 g/dl (3.4-5.0); CALCIUM 9.4 mg/dL (8.5-10.1)
[2022-12-10 21:26] LABS: BLOOD UREA NITROGEN 13.4 mg/dL (7-18)
[2022-12-10 21:29] LABS: CREATININE 0.9 mg/dL (0.55-1.3)
[2022-12-10 21:30] LABS: BILIRUBIN,TOTAL 0.5 mg/dL (0.2-1); TOT PROT 7.8 g/dl (6.4-8.2)
[2022-12-10] MEDS ORDERED: KETAMINE HCL 200 MG/20 ML VIAL IVPUSH ONE ×2 (22:04→23:09)
[2022-12-10] MEDS ORDERED: KETAMINE HCL 200 MG/20 ML VIAL IM ONE (22:21)
[2022-12-10] MEDS ORDERED: PROPOFOL 200 MG/20 ML VIAL IVPUSH ONE (23:10)
[2022-12-10] MEDS ORDERED: KETAMINE HCL 200 MG/20 ML VIAL ONE (23:23)
[2022-12-10] MEDS ORDERED: PROPOFOL 0 ML ONE (23:24)
[2022-12-10] MEDS ORDERED: MIDAZOLAM HCL 2 MG/2 ML SINGLE DOSE VIAL IVPUSH ONE (23:40)
[2022-12-10] MEDS ORDERED: MIDAZOLAM HCL 2 MG/2 ML SINGLE DOSE VIAL ONE (23:46)
[2022-12-11] MEDS ORDERED: MIDAZOLAM HCL 2 MG/2 ML SINGLE DOSE VIAL IM ONE (00:22)
[2022-12-11 04:53] VITALS: BP 117/82; PULSE 76; RESP 16; TEMP 98
[2022-12-11] MEDS ORDERED: FENTANYL CITRATE/PF 50 MCG/ML VIAL ONE (05:02)
== END 2022-12-11 05:10 | disposition short-term general hospital (02) ==
LOC: JER 16:57
PROC: 3E033NZ Introduction of Analgesics, Hypnotics, Sedatives into Peripheral Vein, Percutaneous Approach (ICD-10-PCS; principal; 2022-12-10)
PROC: 3E033GC Introduction of Other Therapeutic Substance into Peripheral Vein, Percutaneous Approach (ICD-10-PCS; 2022-12-10)
PROC: 3E033GC Introduction of Other Therapeutic Substance into Peripheral Vein, Percutaneous Approach (ICD-10-PCS; 2022-12-10)
PROC: 3E033GC Introduction of Other Therapeutic Substance into Peripheral Vein, Percutaneous Approach (ICD-10-PCS; 2022-12-11)
PROC: 3E023GC Introduction of Other Therapeutic Substance into Muscle, Percutaneous Approach (ICD-10-PCS; 2022-12-11)
DX: M79.602 Pain in left arm (principal); S63.002A Unspecified subluxation of left wrist and hand, initial encounter; W10.0XXA Fall (on)(from) escalator, initial encounter; Y93.01 Activity, walking, marching and hiking; Z20.822 Contact with and (suspected) exposure to COVID-19
CPT/HCPCS: 0241U-QW; 36415; 71045-TC-FY; 73060-TC-LT-FY; 73070-TC-LT-FY; 73090-TC-LT-FY; 73110-TC-LT-FY; 73130-TC-LT-FY; 80053; 82962; 84484; 85025; 93005; 93010; 99285-25

== ENCOUNTER 2023-11-21 09:42 | Emergency (ER) | payer OTHER ==
[2023-11-21 09:48] VITALS: BP 106/71; PULSE 88; RESP 18; TEMP 97.7; BMI 36.8
== END 2023-11-21 10:40 | disposition home or self-care (01) ==
LOC: JERFT 09:42
DX: H52.201 Unspecified astigmatism, right eye (principal); H53.8 Other visual disturbances
CPT/HCPCS: 99282-25

== ENCOUNTER 2023-12-23 13:34 | Emergency (ER) | payer OTHER ==
[2023-12-23 13:42] VITALS: BP 136/81; PULSE 88; RESP 18; TEMP 98.3; BMI 39.4
== END 2023-12-23 15:35 | disposition home or self-care (01) ==
LOC: JERFT 13:34
DX: Z04.3 Encounter for examination and observation following other accident (principal); W01.0XXA Fall on same level from slipping, tripping and stumbling without subsequent striking against object, initial encounter; Y93.E1 Activity, personal bathing and showering
CPT/HCPCS: 70450-TC; 72125-TC; 99284-25